=== PATIENT | male | born 1975 | race Caucasian/White ===

== ENCOUNTER 2021-12-01 11:55 | Emergency (ER) | payer OTHER ==
[~2021-12-01] VITALS: Ht 175.3 cm; Wt 83.0 kg
[2021-12-01] MEDS ORDERED: KETOROLAC 60 MG VIAL (30MG/ML) ONE (14:50)
[2021-12-01] MEDS ORDERED: CEPHALEXIN 500 MG CAPSULE ONE (14:50)
[2021-12-01] MEDS ORDERED: KETOROLAC 60 MG VIAL (30MG/ML) IM ONE (15:00)
[2021-12-01] MEDS ORDERED: CEPHALEXIN 500 MG CAPSULE PO ONE (15:00)
[2021-12-01 15:01] LABS: BASOPHILS % (AUTO) 0.7 % (0.0-5.0); EOSINOPHILS % (AUTO) 2.5 % (0.0-8.0); HEMATOCRIT 45.4 % (42-54); LYMPHOCYTES % (AUTO) 28.9 % (21.0-51.0); MEAN CORPUSCULAR HEMOGLOBIN 30.8 pg (27.0-33.0); MEAN CORPUSCULAR HGB CONC 32.8 g/dL (32.0-36.0); MEAN CORPUSCULAR VOLUME 93.8 fL (79-99); NEUTROPHILS % (AUTO) 57.6 % (40.0-77.0); PLATELET COUNT (AUTO) 273 K/uL (130-400); RED BLOOD CELL COUNT(AUTO) 4.84 MIL/uL (4.50-6.20); RED CELL DISTRIBUTION WIDTH 12.5 % (11.0-15.5); WHITE BLOOD COUNT (AUTO) 6.8 K/uL (4.8-10.8)
[2021-12-01 15:06] LABS: APPEARANCE,URINE Clear (CLEAR); BILIRUBIN,URINE Negative (NEGATIVE); COLOR,URINE Yellow (YELLOW); GLUCOSE, URINE (UA) Negative (NEGATIVE); KETONES,URINE Negative (NEGATIVE); LEUKOCYTE ESTERASE ,URINE Negative (NEGATIVE); NITRATE,URINE Negative (NEGATIVE); OCCULT BLOOD,URINE Negative (NEGATIVE); PH,URINE 5.5 (5.0-8.0); PROTEIN,URINE Negative (NEGATIVE); UROBILINOGEN,URINE 0.2 mg/dL (0.2-1.0)
[2021-12-01 15:15] LABS: CREATININE 0.9 mg/dL (0.5-1.5); POTASSIUM 3.8 mmol/L (3.5-5.1)
[2021-12-01 15:20] LABS: ALBUMIN 4.2 g/dL (3.5-5.0); BILIRUBIN,TOTAL 0.9 mg/dL (0.2-1.0); CRP QUANTITATIVE 15.1 mg/L (0.00-9.0); TOTAL PROTEIN, SERUM 8.2 g/dL (6.0-8.3)
[2021-12-01] MEDS ORDERED: IBUP-1552 PO (15:27)
[2021-12-01] MEDS ORDERED: CEPH500B PO (15:27)
[2021-12-01 15:38] VITALS: BP 136/80
== END 2021-12-01 15:43 | disposition home or self-care (01) ==
LOC: EDH 11:55
DX: R59.0 Localized enlarged lymph nodes (principal); R10.32 Left lower quadrant pain; Z88.6 Allergy status to analgesic agent; Z79.899 Other long term (current) drug therapy
CPT/HCPCS: 36415; 80053; 81003; 85025; 86140; 96372; 99283; J1885